=== PATIENT | female | born 1940 | race Caucasian/White ===

== ENCOUNTER → 2016-08-03 | Outpatient (CLI) | payer OTHER ==
[~2016-08-03] VITALS: Ht 160 cm; Wt 93.0 kg
[~2016-08-03] MED LIST: ARTHROTEC 501 TABLET PO; ASPIR 8181 M1 PO; AVELOX400 MG PO; CITALOPRAM HBR20 MG PO; CORTIZONE-10 PL57 GM TP; CYANOCOBALAM1000 MCG PO; CYMBALTA30 MG PO; DIOVAN HCT 11 TABLE1 PO; DIOVAN HCT 31 TABLE1 PO; DIOVAN HCT 3201 EAC1 PO; GABAPENTIN300 MG PO; HYDROEYE PO; IBUPROFEN600 MG PO; K-DUR20 MEQ PO; NEXIUM10 MG PO; NEXIUM40 MG PO; PATADAY2.5 ML BOTH EYES; PRAVACHOL10 MG PO; REQUIP1 MG PO; ROPINIROLE HCL1 MG PO; SIMVASTATIN20 MG PO; SYNTHROID112 MCG PO; SYNTHROID125 MCG PO; SYSTANE BALANCE10 ML BOTH EYES; TYLENOL EXTRA500 MG PO; ULTRAM50 MG PO; VERAPAMIL HCL240 M1 PO; VERAPAMIL HCL240 MG PO; VITAMIN D250000 UNIT PO; VITAMIN D31000 UNI2 PO; [UNRECOGNIZED DRUG - CODE] PO
[2016-08-03 07:35] VITALS: BP 162/75
== END | disposition home or self-care (01) ==
LOC: IVINF 06-28 15:00
PROVIDERS: Internal Medicine Endocrinology, Diabetes & Metabolism
DX: R79.89 Other specified abnormal findings of blood chemistry (principal); Z88.2 Allergy status to sulfonamides; Z88.8 Allergy status to other drugs, medicaments and biological substances
CPT/HCPCS: 80400; 82024 90; 82533 91; 96374; J0834

== ENCOUNTER 2017-10-21 13:15 | Emergency (ER) | payer OTHER ==
[~2017-10-21] VITALS: Ht 162.6 cm; Wt 93.5 kg
[2017-10-21 14:55] LABS: HEMATOCRIT 44.2 % (36.0-46.0); HEMOGLOBIN 14.9 G/DL (11.9-15.5); MCH 29.4 PG (29.0-34.0); MCHC 33.7 G/DL (30.0-36.0); MCV 87.4 FL (83-99); RBC DIS.WIDTH-SD 44.1 % (39-53); RED BLOOD COUNT 5.06 M/uL (3.80-5.20); WHITE BLOOD COUNT 12.5 K/uL (4.1-10.2)
[2017-10-21 14:57] LABS: PLATELET COUNT 319 K/uL (156-360)
[2017-10-21 15:07] LABS: CHLORIDE 103 mEq/L (99-109); POTASSIUM 4.2 mEq/L (3.7-5.4); SODIUM 135 mEq/L (136-147)
[2017-10-21 15:09] LABS: GLUCOSE 102 mg/dL (70-99)
[2017-10-21 15:13] LABS: CREATININE 0.9 mg/dL (0.6-1.3); GFR ESTIMATE (CALCULATED) > 59 mL/min/
[2017-10-21 15:14] LABS: UREA NITROGEN (BUN) 21 mg/dL (9-23)
[2017-10-21 15:18] LABS: TROP-I INTERPRETATION NEGATIVE; TROPONIN-I 0.02 ng/mL (0.0-0.30)
[2017-10-21 16:11] LABS: TROP-I INTERPRETATION NEGATIVE; TROPONIN-I 0.01 ng/mL (0.0-0.30)
[2017-10-21 16:55] VITALS: BP 139/77
== END 2017-10-21 16:55 | disposition home or self-care (01) ==
LOC: EME 13:15
PROVIDERS: Emergency Medicine
DX: R07.9 Chest pain, unspecified (principal); I50.9 Heart failure, unspecified; J45.909 Unspecified asthma, uncomplicated; K21.9 Gastro-esophageal reflux disease without esophagitis; F41.9 Anxiety disorder, unspecified; Z85.828 Personal history of other malignant neoplasm of skin; Z88.2 Allergy status to sulfonamides
CPT/HCPCS: 71046; 80048; 84484; 85027; 93005; 99281; 99285

== ENCOUNTER 2017-12-19 10:56 | Emergency (ER) | payer OTHER ==
[~2017-12-19] VITALS: Ht 160 cm; Wt 90.2 kg
[2017-12-19 11:30] LABS: HEMATOCRIT 44.6 % (36.0-46.0); MCH 29.8 PG (29.0-34.0); MCHC 33.6 G/DL (30.0-36.0); MCV 88.5 FL (83-99); PLATELET COUNT 302 K/uL (156-360); RBC DIS.WIDTH-CV 15.7 % (11.8-14.6); RBC DIS.WIDTH-SD 50.8 % (39-53); RED BLOOD COUNT 5.04 M/uL (3.80-5.20); WHITE BLOOD COUNT 12.5 K/uL (4.1-10.2)
[2017-12-19 11:42] LABS: CHLORIDE 103 mEq/L (99-109); POTASSIUM 3.8 mEq/L (3.7-5.4); SODIUM 137 mEq/L (136-147)
[2017-12-19 11:44] LABS: GLUCOSE 101 mg/dL (70-99)
[2017-12-19 11:47] LABS: CREATININE 0.8 mg/dL (0.6-1.3); GFR ESTIMATE (CALCULATED) > 59 mL/min/
[2017-12-19 11:48] LABS: UREA NITROGEN (BUN) 12 mg/dL (9-23)
[2017-12-19 13:28] LABS: PTT 29.5 SEC (25-37)
[2017-12-19 15:26] LABS: APPEARANCE CLEAR ((CLEAR)); BILIRUBIN NEGATIVE; BLOOD LARGE; GLUCOSE (STRIP) NEGATIVE; KETONES NEGATIVE; LEUKOCYTES SMALL; NITRITE NEGATIVE; PROTEIN (STRIP) 100; SPECIFIC GRAVITY 1.005 (1.000-1.030); UROBILINOGEN 0.2 MG/DL (0.2-1.0)
[2017-12-19 15:30] LABS: COLOR RED ((YELLOW))
[2017-12-19 15:43] LABS: BACTERIA 1+ /HPF; EPITHELIAL CELLS RARE /HPF; MUCUS TRACE /LPF; RED BLOOD CELLS TNTC /HPF (0-5); UCUL ADDED? YES; WHITE BLOOD CELLS 30-40 /HPF (0-5)
[2017-12-19] MEDS ORDERED: KEFLEX500 MG PO (16:28)
[2017-12-19 16:52] VITALS: BP 130/66
== END 2017-12-19 16:53 | disposition home or self-care (01) ==
LOC: EME 10:56
PROVIDERS: Nurse Practitioner Family
DX: N30.91 Cystitis, unspecified with hematuria (principal); N28.1 Cyst of kidney, acquired; I10 Essential (primary) hypertension; K21.9 Gastro-esophageal reflux disease without esophagitis; J45.909 Unspecified asthma, uncomplicated; F41.9 Anxiety disorder, unspecified; G25.81 Restless legs syndrome; Z85.828 Personal history of other malignant neoplasm of skin; Z90.49 Acquired absence of other specified parts of digestive tract; Z90.710 Acquired absence of both cervix and uterus; Z88.2 Allergy status to sulfonamides; Z88.8 Allergy status to other drugs, medicaments and biological substances
CPT/HCPCS: 71046; 74177; 80048; 81003; 85027; 85610; 85730; 86850; 86900; 86901; 87077; 87086 GA; 87186; 99281; 99285; J7120